=== PATIENT | female | born 1980 | race Caucasian/White ===

== ENCOUNTER 2017-07-25 12:18 | Outpatient (CLI) ==
[2017-07-25 21:30] VITALS: BMI 23.1
--- NOTE | 2017-07-31 07:55 | HOLTER ---
PATIENT INFORMATION AND COMMENTS Attending Physician: ALYSSIA AGUERO,/ RAMÍREZ GREENFIELD Indications: CHEST PAIN __ Patient Medications: CARAFATE, RANITIDINE, TYLENOL __ Pre-procedure Summary: Protocol: Standard Heart Rate Started: 07/25/172109 Minimum: 57 BPM Weight: 149 LBS Ended: 07/26/172109 Maximum: 132 BPM Height: 67" Duration: 24 HOURS Average: 77 BPM _ INTERPRETATIONS/OBSERVATIONS: 1. BASIC RHYTHM--SINUS, RATE 60 BPM TO 130 BPM, AVERAGE 80 BPM 2. RARE PVC'S 3. NO TACHYARRHYTHMIA 4. NO ST-T WAVE CHANGES FROM BASELINE 5. ACTIVITY LOG NOT AVAILABLE MTDD
== END 2017-07-25 12:19 | disposition home or self-care (01) ==
LOC: CAR 12:18
PROVIDERS: ATTEND Physician Assistant
DX: R00.2 Palpitations (principal)
CPT/HCPCS: 93005; 93010

== ENCOUNTER 2017-07-25 17:24 | Observation (INO) ==
[2017-07-25 18:26] LABS: BASOPHILS % (AUTO) 0.8 % (0.0-3.0); EOSINOPHILS # (AUTO) 0.4 K/ul (0.0-0.7); EOSINOPHILS % (AUTO) 7.7 % (0.0-7.0); HEMATOCRIT 39.4 % (37.0-47.0); IMMATURE GRANULOCYTE % (AUTO) 0.2 % (0.0-5.0); LYMPHOCYTES # (AUTO) 1.7 K/uL (0.60-3.4); MEAN CORPUSCULAR HEMOGLOBIN 30.8 pg (27.0-31.0); MEAN CORPUSCULAR HGB CONC 35.5 (31.8-35.4); MEAN CORPUSCULAR VOLUME 86.8 fl (81.0-99.0); MONOCYTES # (AUTO) 0.3 K/uL (0.4-2.0); MONOCYTES % (AUTO) 5.8 (0-10); NEUTROPHILS # (AUTO) 2.9 K/ul (2.0-6.9); NEUTROPHILS % (AUTO) 53.5; PLATELET COUNT 199 10^3/uL (140-440); RED BLOOD COUNT 4.54 10^6/ul (4.20-5.40); WHITE BLOOD COUNT 5.32 K/ul (4.6-10.2)
--- NOTE | 2017-07-25 18:29 | ED.PDOC ---
General ED Provider: Dr. SHRAVAN JUAREZ Chief Complaint: Chest Pain Stated Complaint: CHEST PAIN PALPITATION Time Seen by Physician: 17:30 (HISTORY OF CHRONIC PALPITATION) Mode of Arrival: Walk-In Information Source: Patient Exam Limitations: No limitations (NO SYNCOPE ) Primary Care Provider: ALYSSIA AGUERO Nursing and Triage Documentation Reviewed and Agree: Yes Review of Systems - Review Of Systems Constitutional: Reports: No symptoms Eyes: Reports: No symptoms Ears, Nose, Mouth, Throat: Reports: No symptoms Respiratory: Reports: No symptoms Cardiac: Reports: Chest pain, Palpitations GI: Reports: No symptoms : Reports: No symptoms Musculoskeletal: Reports: No symptoms Skin: Reports: No symptoms Neurological: Reports: No symptoms Endocrine: Reports: No symptoms Hematologic/Lymphatic: Reports: No symptoms All Other Systems: Reviewed and Negative Past Medical History - Past Medical History Previously Healthy: Yes Endocrine: Reports: None Cardiovascular: Reports: None Respiratory: Reports: None Hematological: Reports: None Gastrointestinal: Reports: None Genitourinary: Reports: None Neuro/Psych: Reports: None Musculoskeletal: Reports: None Cancer: Reports: None Last Menstrual Period: 07/23/17 - Surgical History General Surgical History: Reports: None - Family History Family History: Reports: None - Social History Smoking Status: Former smoker Hx Substance Use: No Alcohol Screening: None Physical Exam - Physical Exam Appearance: Well-appearing, No pain distress, Well-nourished Eyes: HANG, EOMI, Conjunctiva clear ENT: Ears normal, Nose normal, Oropharynx normal Respiratory: Airway patent, Breath sounds clear, Breath sounds equal, Respirations nonlabored Cardiovascular: RRR, Pulses normal, No rub, No murmur GI/: Soft, Nontender, No masses, Bowel sounds normal, No Organomegaly Musculoskeletal: Normal strength, ROM intact, No edema, No calf tenderness Skin: Warm, Dry, Normal color Neurological: Sensation intact, Motor intact, Reflexes intact, Cranial nerves intact, Alert, Oriented Psychiatric: Affect appropriate, Mood appropriate Interpretation - Insurance Verification Representative Rhythm: Sinus Ectopy: None - EKG Interpretation Rate: Normal Rhythm: Sinus Ectopy: None Sel[place]: NL (INCOMPLETE RIGHT BUNDLE BRANCH BLOCK) Physician Notification - Case Discussed Physician Notified: [email or web address] Time of Notification: 19:00 Critical Care Note - Critical Care Note Total Time (mins): 0 Course - Course Hematology/Chemistry: 07/25/17 18:20 07/25/17 18:20 Orders, Labs, Meds: Lab Review 07/25/17 07/25/17 07/25/17 18:20 18:20 18:20 WBC 5.32 RBC 4.54 Hgb 14.0 Hct 39.4 MCV 86.8 MCH 30.8 MCHC 35.5 H RDW Coeff of Yas 12.8 Plt Count 199 Immature Gran % (Auto) 0.2 Neut % (Auto) 53.5 Lymph % (Auto) 32.0 Adams % (Auto) 5.8 Eos % (Auto) 7.7 H Baso % (Auto) 0.8 Immature Gran # (Auto) 0.0 Neut # 2.9 Lymph # 1.7 Adams # 0.3 L Eos # 0.4 Baso # 0.0 D-Dimer (Manual) Sodium 141 Potassium 3.8 Chloride 108 H Carbon Dioxide 25 Anion Gap 11.8 BUN 11 Creatinine 0.82 Estimated GFR (MDRD) 79.00 BUN/Creatinine Ratio 13.41 Glucose 87 Calcium 9.7 Total Bilirubin 0.53 AST 20 ALT 12 Alkaline Phosphatase 52 Total Creatine Kinase 75 Troponin I < 0.0100 Total Protein 7.3 Albumin 4.2 Globulin 3.1 Albumin/Globulin Ratio 1.35 TSH 1.350 Free T4 0.95 Serum , Qual 07/25/17 07/25/17 18:20 18:20 WBC RBC Hgb Hct MCV MCH MCHC RDW Coeff of Yas Plt Count Immature Gran % (Auto) Neut % (Auto) Lymph % (Auto) Adams % (Auto) Eos % (Auto) Baso % (Auto) Immature Gran # (Auto) Neut # Lymph # Adams # Eos # Baso # D-Dimer (Manual) 343.35 Sodium Potassium Chloride Carbon Dioxide Anion Gap BUN Creatinine Estimated GFR (MDRD) BUN/Creatinine Ratio Glucose Calcium Total Bilirubin AST ALT Alkaline Phosphatase Total Creatine Kinase Troponin I Total Protein Albumin Globulin Albumin/Globulin Ratio TSH Free T4 Serum , Qual Negative Orders Category Date Time Status PLACE PATIENT OBSERVATION .TO MEDSURG (MONITORED BED ADMISSION 07/25/17 19: 47 Active ) EKG-(ED ONLY) Stat CARDIO 07/25/17 18:10 Completed EKG-(IP & OP ONLY) DAILY CARDIO 07/26/17 06:00 Completed EKG-(IP & OP ONLY) DAILY CARDIO 07/27/17 06:00 Completed HOLTER MONITOR Routine CARDIO 07/25/17 19:50 Completed OXYGEN Routine CARDIO 07/25/17 19:48 Active ACTIVITY .Early Mobilization for VTE Prevention CARE 07/25/17 19:47 Active INTAKE & OUTPUT Q8HR CARE 07/25/17 19:47 Active NPO REMINDER: LAB TEST ONCE CARE 07/25/17 19:50 Completed TELEMETRY MONITORING TELE CARE 07/25/17 19:47 Active REGULAR DIET DIETARY 07/25/17 Breakfast Ordered CBC W/ AUTO DIFF Stat LAB 07/25/17 18:20 Completed COMPREHENSIVE METABOLIC PANEL Stat LAB 07/25/17 18:20 Completed CREATINE KINASE Q8H LAB 07/26/17 02:14 Completed CREATINE KINASE Q8H LAB 07/26/17 10:20 Completed CREATINE KINASE Stat LAB 07/25/17 18:20 Completed D-DIMER Stat LAB 07/25/17 18:20 Completed FREE T4 (FREE THYROXINE) Stat LAB 07/25/17 18:20 Completed LIPID PANEL Routine LAB 07/26/17 02:14 Completed SERUM Stat LAB 07/25/17 18:20 Completed THYROID STIMULATING HORMONE Stat LAB 07/25/17 18:20 Completed TROPONIN I Q8H LAB 07/26/17 02:14 Completed TROPONIN I Q8H LAB 07/26/17 10:20 Completed TROPONIN I Stat LAB 07/25/17 18:20 Completed Acetaminophen [Tylenol] MEDS 07/25/17 19:47 Active 650 mg PO Q4H PRN Ranitidine HCl [Zantac] MEDS 07/25/17 20:30 Discontinued 150 mg PO Q12H Sucralfate Susp [Carafate] MEDS 07/25/17 21:00 Active 1 gm PO ACHS RESUSCITATION STATUS Routine OTHERS 07/25/17 19:47 Ordered CHEST, 2 VIEWS PA & LAT Stat RADS 07/25/17 18:10 Completed Medications Generic Name Dose Route Start Last Admin Trade Name Freq PRN Reason Stop Dose Admin Acetaminophen 650 mg 07/25/17 19:47 Tylenol PO Q4H PRN Mild Pain Lorazepam 1 mg 07/25/17 20:57 Ativan PO BID PRN Anxiety Ranitidine HCl 150 mg 07/26/17 08:30 07/27/17 05:49 Zantac PO 150 mg BIDAC ZAHRAA Administration Sodium Chloride 1 syr 07/25/17 20:19 Saline Flush IVF PRN PRN To flush IV Sodium Chloride 1 syr 07/25/17 21:00 07/27/17 05:49 Saline Flush IVF 1 syr Q8HR ZAHRAA Administration Sucralfate 1 gm 07/25/17 21:00 07/27/17 11:43 Carafate PO 1 gm ACHS ZAHRAA Administration Discontinued Medications Generic Name Dose Route Start Last Admin Trade Name Freq PRN Reason Stop Dose Admin Ranitidine HCl 150 mg 07/25/17 20:30 07/25/17 21:00 Zantac PO 150 mg Q12H ZAHRAA Administration Vital Signs: Temp Pulse Resp BP Pulse Ox 07/25/17 17:26 97.6 F 71 20 119/79 99 NOAH Risk Score NOAH Risk Score: Risk Score Odds of by 30D 0 0.1 (0.1-0.2) 1 0.3 (0.2-0.3) 2 0.4 (0.3-0.5) 3 0.7 (0.6-0.9) 4 1.2 (1.0-1.5) 5 2.2 (1.9-2.6) 6 3.0 (2.5-3.6) 7 4.8 (3.8-6.1) Departure - Departure Time of Disposition: 19:00 Disposition: PLACED OBSERVATION Discharge Problem: Chest pain Condition: Good Pt referred to PMD for follow-up: Yes Allergies/Adverse Reactions: Allergies No Known Allergies Allergy (Unverified 07/25/17 17:39) Home Medications: Ambulatory Orders Albuterol Sulfate [Proair Hfa] 2 puff IH QID PRN 07/25/17 Lorazepam [Ativan] 1 mg PO BID PRN 07/25/17 Disposition Discussed With: Patient
[2017-07-25 18:38] LABS: SERUM PREGNANCY INTERNAL QC INTERNAL QC VALID
[2017-07-25 18:54] LABS: ALANINE AMINOTRANSFERASE 12 U/L (12-78); ALBUMIN 4.2 g/dL (3.4-5.0); ALBUMIN/GLOBULIN RATIO 1.35; ALKALINE PHOSPHATASE 52 U/L (42-98); ANION GAP 11.8; ASPARTATE AMINO TRANSFERASE 20 U/L (15-37); BILIRUBIN,TOTAL 0.53 mg/dL (0.00-1.20); BLOOD UREA NITROGEN 11 mg/dL (7-18); BUN/CREATININE RATIO 13.41; CALCIUM 9.7 mg/dL (8.2-10.2); CARBON DIOXIDE 25 mmol/L (21-32); CHLORIDE 108 mmol/L (98-107); CREATINE KINASE 75 U/L; CREATININE 0.82 mg/dL (0.60-1.30); GLUCOSE 87 mg/dL (70-110); POTASSIUM 3.8 mmol/L (3.5-5.10); SODIUM 141 mmol/L (136-145); TOTAL PROTEIN 7.3 g/dL (6.4-8.2)
--- NOTE | 2017-07-25 19:00 | DI ---
EXAM: PA and lateral views of the chest. HISTORY: Pain. FINDINGS: The bones are unremarkable. The cardiac silhouette and pulmonary vasculature are within no rmal limits. The costophrenic angles are clear. No infiltrate or consolidation. Impression: No acute cardiopulmonary disease.
[2017-07-25] MEDS ORDERED: TYLENOL PO PRN (19:47)
[2017-07-25] MEDS ORDERED: ZANTAC PO SCH (20:30)
[2017-07-25] MEDS ORDERED: ATIVAN ONE (20:50)
[2017-07-25] MEDS ORDERED: CARAFATE ONE (20:50)
[2017-07-25] MEDS ORDERED: ZANTAC ONE (20:50)
[2017-07-25] MEDS ORDERED: ATIVAN PO PRN (20:57)
[2017-07-25] MEDS: CARAFATE PO SCH (21:01)
[2017-07-25 21:30] VITALS: BMI 23.1
[2017-07-26 02:40] LABS: CREATINE KINASE 60 U/L
[2017-07-26] MEDS ORDERED: CARAFATE ONE (04:48)
[2017-07-26] MEDS: CARAFATE PO SCH ×4 (05:53→21:50)
[2017-07-26] MEDS: ZANTAC PO SCH ×2 (09:06→17:30)
[2017-07-26 10:49] LABS: CREATINE KINASE 56 U/L
[2017-07-27] MEDS: CARAFATE PO SCH ×2 (05:48→11:43)
[2017-07-27] MEDS: ZANTAC PO SCH (05:49)
--- NOTE | 2017-07-27 07:58 | STRESSECHO ---
Date of Test: 07/26/17 Reason for Exam: CHEST PAIN Ordering Physician: RAMÍREZ GREENFIELD/ ALYSSIA AGUERO Current Medications: PROAIR, ATIVAN Physical Findings: S1, S2, NO S3 Resting EKG: SINUS RHYTHM/NO ACUTE CHANGES Target Heart Rate: 156 STAGE MPH/GRADE HEART RATE BPM BLOOD PRESSURE mmhg RHYTHM S-T SEGMENT +/- UP DOWN SYMPTOMS,COMMENTS At Rest 70 118/62 SR X NONE 1 1.7/10% 116 124/58 SR X NONE 2 2.5/12% 140 126/60 SR X NONE 3 3.4/14% 4 4.2/16% 5 5.0/18% Immediately after 169 SR X TARGET REACHED Durations of Exercise: 7:01 Maximum Heart Rate Reached: 169 Reason for Termination: REACHED TARGET 4 MINUTES POST EXERCISE: HR 99 BPM, SR, +/- INTERPRETATION: 100% OXYGEN SATURATION WITH EXERCISE ON ROOM AIR METS 10.1 1. NO EVIDENCE OF ISCHEMIA BY ST-T WAVE 2. NO CHEST PAIN OR CHEST DISCOMFORT 3. NO ARRHYTHMIAS 4. BLOOD PRESSURE RESPONSE: NORMAL NORMAL LEFT VENTRICULAR CONTRACTILITY--RESTING AND POST EXERCISE MTDD
--- NOTE | 2017-07-27 08:12 | ECHOSTRESS ---
Date of Exam: 07/26/17 Ordering Physician: GIA GREENFIELD/ ALYSSIA AGUERO Reason for Echo: CHEST PAIN, STRESS TEST--NO ISCHEMIA M-Mode Normal Adult Results LV Dimensions Normal Adult Results AoV Opening excursions >1.6 LVEDD-base- 3.5-5.8 Ao root dimensions 2.0-3.7 LVESD-base- 3.1-4.6 L. Atrium dimensions 1.9-3.8 Post. Wall thickness 0.8-1.1 IV septum (thickness) 0.7-1.2 Post. Wall excursion 0.72-1.3 Septal motion Systolic motion R. Ventricular cavity 1.5-2.0 LVEF 60% Paradoxical septal wall motion 2-D: NORMAL LEFT VENTRICULAR CONTRACTILITY--RESTING AND POST EXERCISE M-MODE: MV: AV: TV: PV: CHAMBER SIZE: WALL MOTION: NORMAL LEFT VENTRICULAR CONTRACTILITY--RESTING AND POST EXERCISE PERICARDIUM: INTERPRETATION: 1. NORMAL LEFT VENTRICULAR CONTRACTILITY--RESTING AND POST EXERCISE MTDD
[2017-07-27 09:27] VITALS: BP 90/60; TEMP 98.1
--- NOTE | 2017-07-30 15:53 | CONS ---
DATE OF CONSULTATION: 07/26/17 REASON FOR CONSULTATION: Chest pain HISTORY OF PRESENT ILLNESS: 37 year old white female hospitalized with chest pain substernal tightness unrelated to exertion nearly couple days duration. Also has some palpitations lately off and on. The patient had seen primary care, EKG was done which showed incomplete RBBB type of pattern. The patient was then instructed if the chest pain continues to go to the emergency room which she did. REVIEW OF SYSTEMS: CONSTITUTIONAL: No night sweats. Fatigue. No weakness. No fever or chills. HEENT: Eyes: No visual changes. No eye pain. No eye discharge. ENT: No sinus drainage. No epistaxis. No sinus pain. No sore throat. No odynophagia. No ear pain. No congestion. RESPIRATORY: No cough, no congestion. No hemoptysis. No shortness of breath. CARDIOVASCULAR: No angina symptoms. No CHF symptoms. No atypical chest pain for CAD. No palpitations. No orthopnea. Chest pain substernal tightness as described. Palpation off and on. No PND. GASTROINTESTINAL: No abdominal pain. No nausea or vomiting. No diarrhea or constipation. No hematemesis. No hematochezia. GENITOURINARY: No urgency. No frequency. No dysuria. No hematuria. No obstructive symptoms. No discharge. No pain. No significant abnormal bleeding. MUSCULOSKELETAL: No musculoskeletal pain. No joint swelling. NEUROLOGICAL: No headache. No neck pain. No syncope. No seizures. No dizziness. PSYCHIATRIC: Not anxious. No depression. No suicidal thoughts. No homicidal thoughts. SKIN: No rash. No lesions. No wounds. ENDOCRINE: No unexplained weight loss. No weight gain. HEMATOLOGIC/LYMPHATIC: No anemia. No purpura. No petechiae. No prolonged or excessive bleeding. No palpable lymph nodes. MEDICATIONS: Ativan 1mg twice a day ProAir HFA two puffs four times a day PRN ALLERGIES: No known allergies PAST MEDICAL/SURGICAL HISTORY: Anxiety disorder SOCIAL/PERSONAL/FAMILY HISTORY: The patient is and has kids. She stopped smoking 6 months ago. No alcohol abuse. Works as a restaurant mgr. Father had heart attack at age 40. PHYSICAL EXAMINATION: GENERAL: The patient is oriented to time, place and person. VITAL SIGNS: Temperature 98.4, pulse 70, respiratory rate 14, blood pressure 110 /60 and pulse ox 97% on room air. HEENT: Head normocephalic, atraumatic. Eyes: Extraocular muscles are intact. Pupils are equal, round and reactive to light and accommodation. Ears: No lesions. Nose appeared normal. Throat: No exudate or erythema. NECK: Supple. No JVP, no carotid bruit. No lymphadenopathy or thyromegaly. LUNGS: Clear to auscultation. Percussion note normal. Chest symmetrical. HEART: S1, S2, no S3. No murmurs. No cyanosis or clubbing. No ascites. Pulses: Dorsalis pedis and posterior tibial pulses +2 both sides. PMI not palpable. ABDOMEN: Soft. Nontender. Bowel sounds active. No CVA tenderness. No mass felt. EXTREMITIES: No edema. Full range of motion of all extremities, equal. NEUROLOGIC: No focal deficit. Cranial nerves II through XII are grossly intact. No headache, no double vision or headache. SKIN: Not dry. Intact. Turgor - normal. LYMPHATIC: No palpable lymph nodes/no lymphedema. MUSCULOSKELETAL: Normal joints with no swelling. Muscle tone is normal. LABS: Cardiac markers are negative. Telemetry stripes are sinus rhythm. No ST-T wave change. EKG incomplete RBBB, sinus rhythm, no acute changes x2 practically normal. Lipid profile review which is normal. BMI is 23 which is ideal. ASSESSMENT: 1. Chest pain seems to equivocal for coronary insufficiency 2. Former smoker, quit 6 months ago, strong family history of heart disease RECOMMENDATIONS: 1. Echocardiogram to evaluation LV function 2. Stress echo to rule out ischemia or arrhythmias FOLLOWUP: The patient had echocardiogram done which showed questionable mitral valve prolapse. Seemed to be quite obvious in M mode and left peristernal long access. Abnormal LV contractility. No mitral regurgitation noted. Stress echo METS 10.1, no ischemia noted by ST-T waves. No arrhythmias noted. Blood pressure response was appropriate. LV contractility at rest normal, post exercise normal. Conclusion: 37 year old white female with equivocal chest pain has no evidence of acute marker infarct or GA by EKG or cardiac markers. There is no evidence of ischemia by stress echo. The echo shows questionable mitral valve prolapse the risk factor she has is family history. Randolph lipid profile is normal. Holter report pending. The patient's condition is stable. Thanks for referral. The patient is stable enough to be discharged. [facility]
--- NOTE | 2017-07-31 07:48 | ECHO2D ---
Date of Exam: 07/26/17 Ordering Physician: MAGED CROSS Room #: [id number] Reason for Echo: CHEST PAIN M-Mode Normal Adult Results LV Dimensions Normal Adult Results AoV Opening excursions >1.6 >1.6 LVEDD-base- 3.5-5.8 4.7 Ao root dimensions 2.0-3.7 2.9 LVESD-base- 3.1-4.6 L. Atrium dimensions 1.9-3.8 2.6 Post. Wall thickness 0.8-1.1 0.9 IV septum (thickness) 0.7-1.2 1.0 Post. Wall excursion 0.72-1.3 NORMAL Septal motion NORMAL Systolic motion R. Ventricular cavity 1.5-2.0 NORMAL LVEF 60% 50% Paradoxical septal wall motion NORMAL 2-D : 2-D M Mode Echocardiogram was performed using apical four chamber and left parasternal long and short axis views. Mitral, tricuspid and aortic valves appear to be normal. Contractility of the left ventricle seems to be normal, so is the cavity size. Left atrial cavity size and aortic root appear to be normal. There is no pericardial effusion. There is no thrombus noted in the left ventricular or left aortic cavity. No mitral valve prolapse noted. M-MODE: MV: MITRAL VALVE NOTED ON M MODE AV: NORMAL TV: NORMAL PV: CHAMBER SIZE: NORMAL WALL MOTION: NORMAL PERICARDIUM: NORMAL INTERPRETATION: 1. POSSIBLE MITRAL VALVE PROLAPSE, NO MITRAL REGURGITATION 2. NORMAL LEFT VENTRICULAR CONTRACTILITY 3. NORMAL LEFT ATRIAL AND LEFT VENTRICLE SIZE MTDD
--- NOTE | 2017-08-01 13:25 | CONS ---
DATE OF SERVICE: 07/27/17 CONSULT FOLLOWUP SUBJECTIVE: This morning this patient has practically no complaint. The chest pain has subsided. REVIEW OF SYSTEMS: CONSTITUTIONAL: No night sweats. No fatigue, malaise, lethargy. No fever or chills. HEENT: Eyes: No visual changes. No eye pain. No eye discharge. ENT: No runny nose. No epistaxis. No sinus pain. No sore throat. No odynophagia. No ear pain. No congestion. RESPIRATORY: No cough, no congestion. No hemoptysis. CARDIOVASCULAR: No angina symptoms. No CHF symptoms. No atypical chest pain for CAD. No palpitations. No shortness of breath. GASTROINTESTINAL: No abdominal pain. No nausea or vomiting. No diarrhea or constipation. No hematemesis. No hematochezia. GENITOURINARY: No urgency. No frequency. No dysuria. No hematuria. No obstructive symptoms. No discharge. No pain. No significant abnormal bleeding. MUSCULOSKELETAL: No musculoskeletal pain. No joint swelling. No arthritis. NEUROLOGICAL: No headache. No neck pain. No syncope. No seizures. No dizziness. PSYCHIATRIC: Not anxious. No depression. No suicidal thoughts. No homicidal thoughts. SKIN: No rash. No lesions. No wounds. ENDOCRINE: No unexplained weight loss. No weight gain. HEMATOLOGIC/LYMPHATIC: No anemia. No purpura. No petechiae. No prolonged or excessive bleeding. No palpable lymph nodes. PHYSICAL EXAMINATION: GENERAL: The patient is oriented to time, place and person. HEENT: Head normocephalic, atraumatic. Eyes: Extraocular muscles are intact. Pupils are equal, round and reactive to light and accommodation. Ears: No lesions. Nose appeared normal. Throat: No exudate or erythema. NECK: Supple. No JVD, no carotid bruit. No lymphadenopathy or thyromegaly. LUNGS: Decreased breath sounds but clear to auscultation. Percussion note normal. Chest symmetrical. HEART: S1, S2, no S3. No murmurs. No cyanosis or clubbing. No ascites. Pulses: Dorsalis pedis and posterior tibial pulses +1 to +2 both sides. ABDOMEN: Soft. Nontender. Bowel sounds active. No CVA tenderness. No mass felt. EXTREMITIES: No edema. Full range of motion of all extremities, equal. NEUROLOGIC: No focal deficit. Cranial nerves II through XII are grossly intact. No headache, no double vision or headache. SKIN: Not dry. Intact. Turgor - normal. LYMPHATIC: No palpable lymph nodes/no lymphedema. MUSCULOSKELETAL: Normal joints with no swelling. Muscle tone is normal. LABS: EKG sinus rhythm unchanged, review. Telemetry sinus rhythm no ST-T wave change. The patient's stress echo was negative for ischemia. Possibility of mitral valve prolapse discussed with the patient with no mitral regurgitation. Lipid profile is negative. The patient has strong family history of heart disease; father had RI at 40. The patient's body weight is ideal. RECOMMENDATIONS: 1. She is advised to exercise 2. Follow with primary care. 3. Holter shows sinus rhythm, no ST-T wave change. No tachy arrhythmias, rare PVC's noted isolated. CONDITION: Stable MTDD
--- NOTE | 2017-08-01 13:26 | CONS ---
Seen on Consultation Observation Level 5: 07/26/17 Discharge 07/27/17: Intermediate MTDD
--- NOTE | 2017-08-16 10:49 | PN ---
DATE OF SERVICE: 07/25/2017 SUBJECTIVE: Chief complaint is chest pain and palpations. This is 37 year old female who came to the emergency room being evaluated by Dr. Cook with intermittent chest pain for a long time. She has not sought any medical evaluation, but lately the chest pains on the mid chest and the right side are getting more common, like a pressure and heaviness. The pain comes and goes and is not related to exertion. It feels like palpations and they are coming and going. The patient's family has a coronary artery disease and daughter has a WPW syndrome. The patient got worried today and came to the emergency room for the evaluation. EKG was done which showed a right bundle branch block. The pain radiates to the neck and to the arm. Nausea and heartburn. After evaluation with right bundle branch block, the patient was admitted to observation to rule out acute coronary syndrome. REVIEW OF SYSTEMS: CONSTITUTIONAL: Weakness, tiredness. No fever, no chills. HEENT: Normal. ENDOCRINE: No weight gain, no weight loss. CVS: No angina symptoms. No CHF symptoms. No palpitations. Chest pain. Shortness of breath. No PND, no orthopnea. RESPIRATORY: No cough, no hemoptysis. GI: No nausea, no vomiting. No abdominal pain. : No hematuria. No polyuria. MUSCULOSKELETAL:. No joint swelling. PSYCHIATRIC: Not anxious. No depression. No suicidal thoughts. No homicidal thoughts. SKIN: Intact. No rash. PHYSICAL EXAMINATION: V/S: Blood pressure 119/79, respiratory rate 20, heart rate 71, temperature 97.6 , saturation 99. HEENT: Normocephalic, atraumatic. Mucosa dry. NECK: Supple. No JVD, no carotid bruit. No lymphadenopathy. LUNGS: Clear to auscultation. No rales or rhonchi. HEART: Right sided sternal pain is present. S1, S2 normal. No S3. No murmur, gallop or regurgitation. ABDOMEN: Epigastric discomfort is present. Bowel sounds active. No rigidity. No rebound or guarding. No CVA tenderness. EXTREMITIES: No clubbing, cyanosis or pedal edema. MUSCULOSKELETAL: No joint swelling. NEUROLOGIC: Awake, alert, oriented times three. No focal deficit. LYMPHATIC: No lymph nodes palpable. SKIN: Intact. LABS: Sodium 141, potassium 3.8, chloride 108, bicarb 25, BUN 11, creatinine 0.82, white count 5.32, hemoglobin 14.0, hematocrit 39.4, platelet count 199. D -Dimer 343.35. TSH 1.350. Free T4 is 0.95. Serum is negative. ASSESSMENT: 1. CHEST PAIN, RULE OUT ACUTE CORONARY SYNDROME 2. PALPITATIONS 3. EPIGASTRIC PAIN, PROBABLY FROM THE GERD OR PEPTIC ULCER DISEASE 4. FAMILY HISTORY OF CORONARY ARTERY DISEASE 5. ASTHMATIC BRONCHITIS 6. DEPRESSION 7. ANXIETY PLAN: 1. Admit the patient to the regular floor. 2. CBC, CMP today and daily. 3. Cardiac enzymes and Troponin. 4. Lipid profile. 5. Cardiology consultation with Dr. Valladares. TIME SPENT: More than 55 minutes MTDD
--- NOTE | 2017-08-16 10:57 | PN ---
DATE OF SERVICE: 07/26/17 SUBJECTIVE: The patient is chest pain free. Dr. Valladares has been in and will be doing a stress test and echocardiogram. REVIEW OF SYSTEMS: CONSTITUTIONAL: No fever, no chills. HEENT: Normal. ENDOCRINE: No weight gain, no weight loss. CVS: No angina symptoms. No CHF symptoms. No palpitations. No atypical chest pain for CAD. No shortness of breath. No PND, no orthopnea. RESPIRATORY: No cough, no hemoptysis. GI: No nausea, no vomiting. No abdominal pain. : No hematuria. No polyuria. MUSCULOSKELETAL:. No joint swelling. PSYCHIATRIC: Not anxious. No depression. No suicidal thoughts. No homicidal thoughts. SKIN: Intact. No rash. PHYSICAL EXAMINATION: V/S: Blood pressure 104/59, respiratory rate 14, heart rate 70, temperature 98.4 , saturation 97. HEENT: Normocephalic, atraumatic. Mucosa dry. NECK: Supple. No JVD, no carotid bruit. No lymphadenopathy. LUNGS: Decreased and clear. No rales or rhonchi. HEART: S1, S2 normal. No S3. No murmur, gallop or regurgitation. ABDOMEN: Epigastric discomfort. Bowel sounds active. No rigidity. No rebound or guarding. No CVA tenderness. EXTREMITIES: No clubbing, cyanosis or pedal edema. MUSCULOSKELETAL: No joint swelling. NEUROLOGIC: Awake, alert, oriented times three. No focal deficit. LYMPHATIC: No lymph nodes palpable. SKIN: Intact. LABS: Cholesterol panel is normal. Sodium 141, potassium 3.8, chloride 108, bicarb 25, BUN 11, creatinine 0.82, white count 5.32, hemoglobin 14.0, hematocrit 39.4, platelet count 119. ASSESSMENT: 1. CHEST PAIN, RULE OUT ACUTE CORONARY SYNDROME 2. PALPITATIONS 3. PEPTIC ULCER DISEASE 4. DEPRESSION 5. ANXIETY 6. ASTHMATIC BRONCHITIS PLAN: 1. Continue the Zantac and Carafate. 2. Ativan prn. 3. Echocardiogram, stress echo and Holter monitoring. TIME SPENT: More than 35 minutes today MTDD
--- NOTE | 2017-08-16 11:29 | SSS ---
DATE OF SERVICE: 07/27/17 CHIEF COMPLAINT: Chest pain and palpations. HISTORY OF PRESENT ILLNESS: This is a 37 year old female who has been having chest pain on and off for a couple of weeks. Right sided chest pain radiating to the right side of the shoulder and the joints. Lately she has been stressed out and also has a lot of acid reflux. She also has palpitations on and off and it peaks like regular heart rate. She came to the emergency room and seen by Dr. Cook. EKG was right bundle branch block. At that time, the patient was admitted to the hospital to rule out acute coronary syndrome. PAST MEDICAL HISTORY: Anxiety GERD Asthma, mild persistent Depression Anxiety PAST SURGICAL HISTORY: None. FAMILY HISTORY: Significant for hypertension, diabetes and coronary artery disease. PERSONAL HISTORY: Does not smoke or drink alcohol. ALLERGIES: Allergic to no known medications. HOME MEDICATIONS: Ativan and Albuterol prn. REVIEW OF SYSTEMS: CONSTITUTIONAL: No night sweats. No fatigue, malaise, lethargy. No fever or chills. HEENT: Eyes: No visual changes. No eye pain. No eye discharge. ENT: No runny nose. No epistaxis. No sinus pain. No sore throat. No odynophagia. No ear pain. No congestion. RESPIRATORY: No cough, no congestion. No hemoptysis. Shortness of breath. CARDIOVASCULAR: No angina symptoms. No CHF symptoms. Chest pain. Palpitations. No orthopnea. GASTROINTESTINAL: No abdominal pain. No nausea or vomiting. No diarrhea or constipation. No hematemesis. No hematochezia. GENITOURINARY: No dysuria. No hematuria. No obstructive symptoms. No discharge. No pain. No significant abnormal bleeding. MUSCULOSKELETAL: No musculoskeletal pain. No joint swelling. NEUROLOGICAL: Awake, alert, oriented to time, place and person. No headache. No neck pain. No syncope. No seizures. No dizziness. PSYCHIATRIC: Not anxious. No depression. No suicidal thoughts. No homicidal thoughts. SKIN: No rash. No lesions. No wounds. ENDOCRINE: No unexplained weight loss. No weight gain. HEMATOLOGIC/LYMPHATIC: No anemia. No purpura. No petechiae. No prolonged or excessive bleeding. No palpable lymph nodes. LABS: White count 5.32, hemoglobin 14.0, hematocrit 39.4, platelet count 199, sodium 141, potassium 3.8, chloride 108, bicarb 25, BUN 11, creatinine 0.82, glucose 87. Three sets of cardiac enzymes were negative. Total cholesterol is 134, triglycerides 62, LDL 77, D-Dimer is 343.35. PHYSICAL EXAMINATION: GENERAL: The patient is lying in bed in no distress. VITAL SIGNS: Blood pressure 90/60, respiratory rate 20, heart rate 71, temperature 98.1, saturation 98. HEENT: Head normocephalic, atraumatic. Eyes: Extraocular muscles are intact. Pupils are equal, round and reactive to light and accommodation. Ears: No lesions. Nose appeared normal. Throat: No exudate or erythema. NECK: Supple. No JVD, no carotid bruit. No lymphadenopathy or thyromegaly. LUNGS: Clear to auscultation. Percussion note normal. Chest symmetrical. HEART: S1, S2, no S3. No murmurs. No cyanosis or clubbing. No ascites. Pulses: Dorsalis pedis and posterior tibial pulses +1 to +2 both sides. ABDOMEN: Soft. Nontender. Bowel sounds active. No CVA tenderness. No mass felt. EXTREMITIES: No edema. Full range of motion of all extremities, equal. NEUROLOGIC: No focal deficit. Cranial nerves II through XII are grossly intact. No headache, no double vision or headache. SKIN: Not dry. Intact. Turgor - normal. LYMPHATIC: No palpable lymph nodes/no lymphedema. MUSCULOSKELETAL: Normal joints with no swelling. Muscle tone is normal. BRIEF HOSPITAL COURSE: The patient was admitted to the hospital and put on telemetry protocol. Dr. Valladares consultation obtained for the cardiology evaluation. He was courteous enough and came and did stress echo which was negative. Echocardiogram showed a mitral valve prolapse. The patient meanwhile was put on the Holter monitoring. With a GI cocktail, Carafate and Zantac, the patient's chest pain was getting better. At that time the patient was discharged to home. FINAL DIAGNOSES: 1. CHEST PAIN, NONCARDIAC 2. GERD 3. ANXIETY 4. MILD PERSISTENT ASTHMA 5. MITRAL VALVE PROLAPSE 6. FAMILY HISTORY OF CORONARY ARTERY DISEASE PLAN: 1. Discharge the patient home. 2. Lifestyle modifications, weight loss and diet control. No spicy or fried foods. 3. Continue Zantac and Carafate. 4. Follow up with PMD in 5-7 days. TIME SPENT: More than 65 minutes today. MTDD
== END 2017-07-27 13:13 | disposition home or self-care (01) ==
LOC: ED 17:24 → MEDSURG B 20:06
PROVIDERS: ADMIT Emergency Medicine; ATTEND Emergency Medicine
DX: R07.89 Other chest pain (principal); I45.19 Other right bundle-branch block; R00.2 Palpitations; I34.1 Nonrheumatic mitral (valve) prolapse; J45.30 Mild persistent asthma, uncomplicated; K21.9 Gastro-esophageal reflux disease without esophagitis; F41.9 Anxiety disorder, unspecified; Z82.49 Family history of ischemic heart disease and other diseases of the circulatory system; Z87.891 Personal history of nicotine dependence
CPT/HCPCS: 36415; 80053; 80061; 82550; 84439; 84443; 84484; 84703; 85025; 85379; 93005; 93010; 93227; 99284